=== PATIENT | female | born 2000 ===

== ENCOUNTER 2019-08-01 18:50 | Emergency (ER) | payer SELFPAY ==
[2019-08-01] MEDS ORDERED: LORAZEPAM 2 MG/ML VIAL IV ONE (19:12)
--- NOTE | 2019-08-01 19:18 | Emergency Department Record ---
History of Present Illness - General Chief Complaint: Headache Migraine Stated Complaint: HEAD PRESSURE,RT EAR PLUGGED,BLURRY VISION,ANXIETY Time Seen by Provider: 08/01/19 18:58 Source: Patient Mode of Arrival: Ambulatory Limitations: No limitations - History of Present Illness Initial Comments: Pt presents to the ED alone, "dropped off by my mom", with several issues. Her primary issue tonight is a complaint of right sided head "pressure" and associated nausea without vomiting and issues with vision. Pt relates her "vision going out" and then later states her "hearing is going out". Further questioning relates visual "flashing lights when eyes are closed". There is no weakness to arms or legs. Pt is 4 months post vaginal delivery in [place] where she has "dual citizenship". She is living locally now and caring fro her child with support of her mother and the babies paternal grandmother. 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 She relates using marijuana daily but denies other drug or alcohol use. She is a smoker and trying to quit tobacco. She relates issues with "anxiety" but has never seen a counselor. She has a history of migraines as a child. - Related Data Home Medications Medication Instructions Recorded Confirmed Last Taken Meloxicam 1 tab PO BID 08/01/19 08/01/19 Unknown Metronidazole [Flagyl] 500 mg PO BID 08/01/19 08/01/19 Unknown Tramadol HCl [Ultram] 100 mg PO TID 08/01/19 08/01/19 Unknown Allergies Allergy/AdvReac Type Severity Reaction Status Date / Time No Known Drug Allergies Allergy Verified 08/01/19 20:02 Review of Systems Constitutional: Denies: Chills, Fever, Weakness Eyes: Reports: As per HPI, Photophobia, Vision change. Denies: Eye pain ENT: Reports: As per HPI, Congestion, Hearing loss. Denies: Dental pain, Ear pain, Throat pain Respiratory: Denies: Cough, Dyspnea, Wheezes Cardiovascular: Denies: Arrhythmia, Chest pain, Palpitations, Syncope Endocrine: Denies: Polydipsia, Polyuria Gastrointestinal: Reports: Nausea. Denies: Abdominal pain, Diarrhea, Vomiting Genitourinary: Denies: Abnormal menses, Dysuria Musculoskeletal: Denies: Arthralgia, Back pain Skin: Denies: Bruising, Rash Neurological: Reports: Headache. Denies: Tingling, Tremors Psychiatric: Reports: As per HPI, Anxiety. Denies: Auditory hallucinations, Suicidal thoughts Hematological/Lymphatic: Denies: Anemia, Swollen glands Physical Exam - General General Appearance: Alert, Oriented x3, Cooperative, Mild distress - Head Head exam: Atraumatic, Normal inspection - Eye Eye exam: Normal appearance, PERRL, EOMI. negative: Conjunctival injection, Nystagmus - ENT ENT exam: Mucous membranes moist, TM's normal bilaterally Ear exam: Normal external inspection Nasal Exam: Normal inspection. negative: Sinus tenderness Mouth exam: Normal external inspection Throat exam: Normal inspection. negative: Tonsillar erythema - Neck Neck exam: Normal inspection, Full ROM. negative: Lymphadenopathy, Meningismus - Respiratory Respiratory exam: Normal lung sounds bilaterally. negative: Decreased breath sounds, Rhonchi, Wheezes - Cardiovascular Cardiovascular Exam: Regular rate, Normal rhythm. negative: Tachycardia Peripheral Pulses: 2+: Radial (R), Radial (L) - GI/Abdominal GI/Abdominal exam: Soft, Normal bowel sounds. negative: Guarding, Rebound, Tenderness - Extremities Extremities exam: Normal inspection. negative: Pedal edema, Tenderness - Back Back exam: Reports: Normal inspection. Denies: Paraspinal tenderness - Neurological Neurological exam: Alert, CN II-XII intact, Normal gait, Oriented X3. negative: Motor sensory deficit - Psychiatric Psychiatric exam: Anxious. negative: Suicidal ideation - Skin Skin exam: Normal color. negative: Rash, Urticaria Course - Reevaluation(s) Reevaluation #1: 08/01/19 19:20 Seen and visually anxious. Saline lock and Ativan. Will re-evaluate after medications and reassess plan. Pt neurologically intact at this time. Reevaluation #2: 08/01/19 20:01 Mother present in room. Baby also in room. Pt resting and states she has "no pain". Feels more relaxed. Long talk with patient and her mother. There is a history of depression but she denies suicidal ideation at this time. We discussed the need to see a primary anesthesiologist and critical care and we will refer to the clinic. Pt need to have an exam and to discuss seeing a counselor for her anxiety issues. Pt and her mother are comfortable with home. Disposition Disposition: Discharge Clinical Impression: Anxiety, Headache, Marijuana abuse Condition: (1) Good Instructions: Anxiety (ED) Additional Instructions: Home with your mother to assist in the care of your baby tonight. Grandmother present agrees to watch both the patient and her baby tonight. Do not drive tonight with the medications you were given in the ED. See a Family Doctor at the [facility] clinic in 1-2 days. Do not smoke tobacco or marijuana Return to the ED as needed. Forms: Patient Portal Access Time of Disposition: 20:06 Quality - Quality Measures Quality Measures: N/A - Blood Pressure Screening Does Patient Have Any of the Following: No Blood Pressure Classification: Pre-Hypertensive BP Reading Systolic Measurement: 133 Diastolic Measurement: 89 Screening for High Blood Pressure: < Pre-Hypertensive BP, F/U Documented > [G8950] Pre-Hypertensive Follow-up Interventions: Follow-up with rescreen every year.
== END 2019-08-01 20:35 | disposition home or self-care (01) ==
LOC: ER 18:50
DX: F41.8 Other specified anxiety disorders (principal); R51 Headache; R11.0 Nausea; F12.10 Cannabis abuse, uncomplicated
CPT/HCPCS: 84703; 96374; 99284

== ENCOUNTER 2019-08-14 04:37 | Emergency (ER) | payer SELFPAY ==
[2019-08-14] MEDS ORDERED: METOCLOPRAMIDE HCL 10 MG/2 ML VIAL IVP ONE (04:45)
[2019-08-14] MEDS ORDERED: 0.9 % SODIUM CHLORIDE 1000ML 1,000 ML IV SCH (04:45)
[2019-08-14] MEDS ORDERED: DIPHENHYDRAMINE HCL 50 MG/ML VIAL IVP ONE (04:45)
[2019-08-14] MEDS ORDERED: LORAZEPAM 2 MG/ML VIAL IV ONE (04:45)
--- NOTE | 2019-08-14 04:52 | Emergency Department Record ---
History of Present Illness - General Chief Complaint: Headache Migraine Stated Complaint: VISION PROBLEM Time Seen by Provider: 08/14/19 04:39 Source: Patient Mode of Arrival: Ambulatory Limitations: No limitations - History of Present Illness Initial Comments: 19 yo female presents to ED for evaluation of anxiety and visual aura that accompanies her migraine headaches. Patient reports that her last headache was 2 years ago, patient reports daily anxiety over when her next headache will begin. Patient denies fevers, chills, neck stiffness, chest discomfort, or difficulty in breathing. Patient is also concerned about facial numbness and numbness to the right arm "due to my implanted control". Complaint: Headache Onset/Timin -: Hour(s) Onset Description: Gradual Location: Diffuse Severity: Moderate Quality: Aching Consistency: Constant Improves With: Nothing Worsens With: None Associated Symptoms: Photophobia Treatments Prior to Arrival: None - Related Data Home Medications Medication Instructions Recorded Confirmed Last Taken No Home Med [NO HOME MEDS] 08/14/19 08/14/19 Unknown Allergies Allergy/AdvReac Type Severity Reaction Status Date / Time No Known Drug Allergies Allergy Verified 08/14/19 04:44 Review of Systems Constitutional: Denies: Chills, Fever, Malaise, Night sweats Eyes: Reports: Photophobia. Denies: Eye discharge, Eye pain ENT: Denies: Congestion, Ear pain, Epistaxis Respiratory: Denies: Cough, Dyspnea Cardiovascular: Denies: Chest pain, Dyspnea on exertion Endocrine: Denies: Fatigue, Heat or cold intolerance Gastrointestinal: Denies: Abdominal pain, Nausea, Vomiting Genitourinary: Denies: Incontinence, Retention Musculoskeletal: Denies: Arthralgia, Back pain Skin: Denies: Bruising, Change in color Neurological: Reports: Headache. Denies: Abnormal gait, Confusion, Seizure Psychiatric: Reports: Anxiety Hematological/Lymphatic: Denies: Anemia, Blood Clots Past Medical History - SOCIAL HISTORY Smoking Status: Former smoker Drug Use Detail:: Marijuana - RESPIRATORY Hx Asthma: Yes - CARDIOVASCULAR Hx Cardio Disorders: No - NEURO Hx Neuro Disorders: Yes Hx Headaches: Yes - GI Hx GI Disorders: No - Hx Genitourinary Disorders: No - ENDOCRINE Hx Endocrine Disorders: No - MUSCULOSKELETAL Hx Musculoskeletal Disorders: No - PSYCH Hx Psych Problems: Yes Hx Anxiety: Yes Physical Exam - General General Appearance: Alert, Oriented x3, Cooperative, Anxious Limitations: No limitations - Head Head exam: Atraumatic, Normocephalic, Normal inspection Head exam detail: negative: Abrasion, Contusion, Neely's sign, General tenderness, Hematoma, Laceration - Eye Eye exam: Normal appearance. negative: Conjunctival injection, Periorbital swelling, Periorbital tenderness, Scleral icterus - ENT Ear exam: negative: Auricular hematoma, Auricular trauma Nasal Exam: negative: Active bleeding, Discharge, Dried blood, Foreign body Mouth exam: negative: Drooling, Laceration, Muffled voice, Tongue elevation - Neck Neck exam: Normal inspection. negative: Meningismus, Tenderness - Respiratory Respiratory exam: Normal lung sounds bilaterally. negative: Rales, Respiratory distress, Rhonchi, Stridor - Cardiovascular Cardiovascular Exam: Regular rate, Normal rhythm, Normal heart sounds - GI/Abdominal GI/Abdominal exam: Soft. negative: Rebound, Rigid, Tenderness - Rectal Rectal exam: Deferred - exam: Deferred - Extremities Extremities exam: Normal inspection. negative: Pedal edema, Tenderness - Back Back exam: Denies: CVA tenderness (R), CVA tenderness (L) - Neurological Neurological exam: Alert, Normal gait, Oriented X3 - Psychiatric Psychiatric exam: Anxious - Skin Skin exam: Normal color. negative: Abrasion Type of lesion: negative: abrasion Course Vital Signs 08/14/19 04:43 Temperature 97.7 F Pulse Rate [ 77 Pulse Ox Probe] Respiratory 24 Rate Blood Pressure 125/56 [Left Arm] Pulse Ox 100 - Reevaluation(s) Reevaluation #1: 08/14/19 06:08 Patient was reassessed, reports that her headache symptoms are improved. Patient appears stable for discharge at this time. Disposition Disposition: Discharge Clinical Impression: Acute headache Qualifiers: Headache type: unspecified Intractability: not intractable Qualified Code(s): R51 - Headache Disposition: Home, Self-Care Condition: (2) Stable Instructions: Acute Headache (ED) Additional Instructions: Return to ED if your symptoms worsen or if you have any concerns. Follow-up with your family doctor in 3-5 days as directed. Forms: Patient Portal Access Time of Disposition: 06:08 Quality - Quality Measures Quality Measures: N/A - Blood Pressure Screening Does Patient Have Any of the Following: No Blood Pressure Classification: Pre-Hypertensive BP Reading Systolic Measurement: 125 Diastolic Measurement: 56 Screening for High Blood Pressure: < Pre-Hypertensive BP, F/U Documented > [ G8950] Pre-Hypertensive Follow-up Interventions: Referral to alternative/primary care provider.
== END 2019-08-14 06:21 | disposition home or self-care (01) ==
LOC: ER 04:37
DX: R51 Headache (principal); H53.149 Visual discomfort, unspecified; Z87.891 Personal history of nicotine dependence
CPT/HCPCS: 99284 ×2; 96374; 96375; 96361; J2060; J1200; J2765; J7030